=== PATIENT | male | born 1950 | race Two or more races ===

== ENCOUNTER 2022-04-20 06:38 | Day surgery (SDC) | payer OTHER | END 2022-04-20 09:10 | disposition home or self-care (01) | LOC: CIR.AMB 06:38 | PROVIDERS: ATTEND Surgery | DX: K80.20 Calculus of gallbladder without cholecystitis without obstruction (principal); Z87.891 Personal history of nicotine dependence; B19.20 Unspecified viral hepatitis C without hepatic coma; F14.21 Cocaine dependence, in remission ==

== ENCOUNTER 2022-05-05 11:12 | Outpatient (CLI) | payer OTHER | END 2022-05-05 11:13 | disposition home or self-care (01) | LOC: LAB 11:12 | PROVIDERS: ATTEND Surgery | DX: K80.20 Calculus of gallbladder without cholecystitis without obstruction (principal); E11.59 Type 2 diabetes mellitus with other circulatory complications ==

== ENCOUNTER 2022-05-11 06:00 | Day surgery (SDC) | payer OTHER | END 2022-05-11 13:45 | disposition home or self-care (01) | LOC: CIR.AMB 06:00 | PROVIDERS: ATTEND Surgery | DX: K80.10 Calculus of gallbladder with chronic cholecystitis without obstruction (principal); Z20.822 Contact with and (suspected) exposure to COVID-19; F14.91 Cocaine use, unspecified, in remission; Z87.891 Personal history of nicotine dependence ==